=== PATIENT | female | born 1970 | race Two or more races ===

== ENCOUNTER 2025-02-14 16:39 | Emergency (ER) | payer OTHER, SELFPAY ==
[2025-02-14 16:51] VITALS: BP 157/94; PULSE 79; TEMP 36.7; O2SAT 99; BMI 36.6
--- NOTE | 2025-02-14 17:01 | ED.GENADUL1 ---
HPI HPI - General Adult General Chief complaint: Headache Stated complaint: HEADACHE Time Seen by Provider: 02/14/25 16:46 Source: patient Mode of arrival: walk-in History of Present Illness HPI narrative: 54 year old female presents to the ED for a left-sided headache/pressure. Onset was after work today. She had a similar episode after work on Wednesday02/09/25. Reports a buzzing sound. Denies fever, chills, vision changes, dizziness, weakness. Denies sinus congestion/drainage, cough, sore throat. Denies neck pain/stiffness, N/V. The discomfort is near her left ear. She is accompanied by family. Related Data Previous Rx's ?Medication ?Instructions ?Recorded amoxicillin 500 mg capsule 500 mg PO BID 10 days #20 caps 02/14/25 onibgknppe-cntosfvesovxr-xdnubymf 1 tab PO Q8H PRN pain 4 days #12 02/14/25 50 mg-325 mg-40 mg tablet tabs Allergies Allergy/AdvReac Type Severity Reaction Status Date / Time No Known Drug Allergies Allergy Verified 02/14/25 16:51 Review of Systems ROS Constitutional Denies: fever, chills or fatigue Ears, nose, mouth, and throat Reports: ear pain; Denies: throat pain, neck pain, ear discharge, nasal discharge or nasal congestion Cardiovascular Denies: chest pain Respiratory Denies: shortness of breath or cough Musculoskeletal Denies: neck pain Integumentary/Breast Denies: rash Neurological Reports: headache; Denies: numbness in extremities, weakness in extremities or dizziness PFSH PFSH Social History Little interest or pleasure in doing things: not at all Feeling down, depressed, or hopeless: not at all Exam Constitutional Vital Signs, click to edit/add: Last Vital Signs Temp 98.0 F 02/14/25 16:51 Pulse 79 02/14/25 16:51 Resp 20 02/14/25 16:51 BP 157/94 H 02/14/25 16:51 Pulse Ox 99 02/14/25 16:51 O2 Del Method Room Air 02/14/25 16:51 Common normals: no apparent distress and oriented x3 General appearance: cooperative; not ill appearing [facility] Common normals: normocephalic, external ears normal, EACs normal and moist oral mucous membranes Head and scalp: no Diaz's sign and no raccoon eyes Face and sinus: normal facial exam Tympanic membrane: TM normal on the right and TM abnormal TM laterality: left erythematous Mouth: oral and palatal mucosa normal, lip normal and tongue normal Throat: posterior oropharynx normal and uvula midline Eye Common normals: PERRL, EOMs intact bilaterally, conjunctivae normal and no scleral icterus Neck & C-Spine Common normals: supple Chest Chest: symmetrical chest wall rise Respiratory Common normals: normal respiratory effort and clear to auscultation bilaterally Effort & inspection: able to speak in complete sentences and symmetric chest movement Cardio Common normals: regular rate and regular rhythm Neuro Common normals: oriented x3, CN's II-XII intact bilaterally, moves all extremities and no focal motor deficits Sensorium/orientation: awake and alert Speech: speech normal Gait (neuro): normal gait Course Vital Signs Vital signs: Vital Signs Temperature 98.0 F 02/14/25 16:51 Pulse Rate 79 02/14/25 16:51 Respiratory Rate 20 02/14/25 16:51 Blood Pressure 157/94 H 02/14/25 16:51 Pulse Oximetry 99 02/14/25 16:51 Oxygen Delivery Method Room Air 02/14/25 16:51 Temperature 98.0 F 02/14/25 16:51 Pulse Rate 79 02/14/25 16:51 Respiratory Rate 20 02/14/25 16:51 Blood Pressure 157/94 H 02/14/25 16:51 Pulse Oximetry 99 02/14/25 16:51 Oxygen Delivery Method Room Air 02/14/25 16:51 Medical Decision Making MDM Narrative Medical decision making narrative: CT scan was negative for acute findings. Left TM was erythematous. Findings were discussed with the patient. She reported she does have discomfort to the left ear and some mild left-sided throat discomfort. Prescriptions were provided for amoxicillin and Fioricet. Follow up with pcp for a recheck, further evaluation and treatment. Medical Records Medical records reviewed: Yes I reviewed the patient's medical records Imaging Data CT scan - head: Attestation: I have reviewed the pertinent imaging results. Radiologist's impression: No acute intracranial process. Discharge Plan Discharge Chief Complaint: Headache Clinical Impression: Headache, Otitis media Patient Disposition: Home, Self-Care Time of Disposition Decision: 18:06 Condition: Good Mode of Transportation: Private Vehicle Prescriptions / Home Meds: New amoxicillin 500 mg capsule 500 mg PO BID 10 Days Qty: 20 0RF efjqmbhlbb-dhiphkdtemlrx-tdto 50-325-40 mg tablet 1 tab PO Q8H PRN (Reason: pain) 4 Days Qty: 12 0RF Print Language: Barbadian Instructions: Ear Infection (ED), Acute Headache (ED) Additional Instructions: Return to the ER for worsening symptoms. Referrals: Physician,Non-Staff, MD [Primary Care Provider] - 1 week
[2025-02-14] MEDS: BUTALB/ACETAMINOPHEN/CAFFEINE 50-325-40MG TABLET 1 TAB PO (17:14)
[2025-02-14] MEDS: DEXAMETHASONE SOD PHOS 10 MG/ML VIAL PO (17:14)
== END 2025-02-14 18:23 | disposition home or self-care (01) ==
PROVIDERS: Emergency Provider Emergency Medicine
DX: R51.9 Headache, unspecified (principal); H66.92 Otitis media, unspecified, left ear
CPT/HCPCS: 70450; 99284; J1100